=== PATIENT | female | born 1965 | race Caucasian/White ===

== ENCOUNTER → 2019-03-19 | Outpatient (CLI) | payer OTHER ==
[~2019-03-19] MED LIST: AMIT25TA9 PO; AMLO10TA7 PO; CARV12.580 PO; CYAN500T46 PO; FURO40TA5 PO; Folic Acid/Vitamin B Comp W-C PO; HYDR-4153 PO; IRON18TA PO; LEVO500T2 PO
== END | disposition home or self-care (01) ==
LOC: OIH 11:38
PROVIDERS: ATTEND Family Medicine
DX: S98.921A Partial traumatic amputation of right foot, level unspecified, initial encounter (principal); J90 Pleural effusion, not elsewhere classified; N18.9 Chronic kidney disease, unspecified; X58.XXXA Exposure to other specified factors, initial encounter; Y93.89 Activity, other specified; Y92.89 Other specified places as the place of occurrence of the external cause; Y99.8 Other external cause status
CPT/HCPCS: 71046